=== PATIENT | male | born 1995 | race Caucasian/White ===

== ENCOUNTER 2017-10-31 13:47 | Emergency (ER) | payer OTHER ==
[~2017-10-31] VITALS: Ht 175.3 cm; Wt 100.0 kg
[2017-10-31] MEDS ORDERED: ONDANSETRON HCL 4MG/2ML VIAL IV STA (19:23)
[2017-10-31] MEDS ORDERED: FAMOTIDINE 20MG/2ML VIAL IV STA (19:23)
[2017-10-31 19:41] LABS: BASOPHILS % 0.3 % (0.0-2.0); EOSINOPHILS % 0.5 % (0.0-5.0); HEMATOCRIT. 52.3 % (42.0-52.0); HEMOGLOBIN. 18.2 g/dL (14.0-18.0); LYMPHOCYTES % 7.6 % (20.0-50.0); MEAN CORPUSCULAR HEMOGLOBIN 30.4 pg (28.0-32.0); MEAN CORPUSCULAR VOLUME 87.8 fL (80.0-94.0); MEAN PLATELET VOLUME 7.9 fl (7.4-10.4); MONOCYTES % 8.4 % (2.0-8.0); NEUTROPHILS % 83.2 % (40.0-76.0); PLATELET 239 x1000/uL (130-400); RED BLOOD CELL COUNT 5.96 mill/uL (4.7-6.1); RED CELL DISTRIBUTION WIDTH 12.5 % (11.6-14.6)
[2017-10-31 19:48] LABS: CHLORIDE 100 mEq/L (98-107); INR 1.1; PROTHROMBIN TIME 11.4 sec (9.4-11.6)
[2017-10-31] MEDS ORDERED: KETOROLAC 30MG/ML VIAL IV ONE (20:15)
[2017-10-31] MEDS ORDERED: SODIUM CHLORIDE 0.9% 1,000 ML IV ONE (20:15)
[2017-10-31 20:17] LABS: CLARITY URINE CLEAR (CLEAR); COLOR URINE YELLOW (YELLOW); KETONES URINE NEGATIVE (NEGATIVE); LEUKOCYTE ESTERASE URINE NEGATIVE (NEGATIVE); NITRITE URINE NEGATIVE (NEGATIVE); OCCULT BLOOD URINE NEGATIVE (NEGATIVE); PH URINE 6.5 (4.5-8.0); PROTEIN URINE NEGATIVE (NEGATIVE); SPECIFIC GRAVITY URINE 1.028 (1.005-1.030)
[2017-10-31 21:30] VITALS: BP 123/65
== END 2017-10-31 21:30 | disposition home or self-care (01) ==
LOC: ER 13:47
DX: J02.9 Acute pharyngitis, unspecified (principal); M79.1 Myalgia; R11.2 Nausea with vomiting, unspecified; R10.84 Generalized abdominal pain; F17.200 Nicotine dependence, unspecified, uncomplicated
CPT/HCPCS: 36415; 80053; 81003; 83690; 85025; 85610; 96361; 96374; 96375; 99284; J1885; J2405; J3490; J7030; Z7610

== ENCOUNTER 2017-12-27 10:05 | Emergency (ER) | payer SELFPAY ==
[~2017-12-27] VITALS: Ht 175.3 cm; Wt 100.0 kg
[2017-12-27 10:25] VITALS: BP 149/81
[2017-12-27 13:26] LABS: CLARITY URINE TURBID (CLEAR); COLOR URINE YELLOW (YELLOW); KETONES URINE NEGATIVE (NEGATIVE); LEUKOCYTE ESTERASE URINE NEGATIVE (NEGATIVE); NITRITE URINE NEGATIVE (NEGATIVE); OCCULT BLOOD URINE NEGATIVE (NEGATIVE); PH URINE 7.5 (4.5-8.0); PROTEIN URINE NEGATIVE (NEGATIVE); UROBILINOGEN URINE 0.2 E.U./dL (0.2-1.0)
== END 2017-12-27 15:38 | disposition home or self-care (01) ==
LOC: ER 12:22
DX: M54.5 Low back pain (principal)
CPT/HCPCS: 76770; 81003; 99285